=== PATIENT | male | born 1975 | race Hispanic/Latino ===

== ENCOUNTER 2018-01-18 18:30 | Emergency (ER) | payer SELFPAY ==
[2018-01-18] MEDS ORDERED: AMOXICILLIN 500 MG CAPSULE PO ONE (18:52)
== END 2018-01-18 19:01 | disposition home or self-care (01) ==
LOC: EDH 18:30
DX: J02.0 Streptococcal pharyngitis (principal); R50.81 Fever presenting with conditions classified elsewhere; Z72.0 Tobacco use

== ENCOUNTER 2020-02-27 17:55 | Emergency (ER) | payer OTHER | END 2020-02-27 18:45 | disposition home or self-care (01) | LOC: EDH 17:55 | DX: S83.8X2A Sprain of other specified parts of left knee, initial encounter (principal); I10 Essential (primary) hypertension; Z72.0 Tobacco use; W18.39XA Other fall on same level, initial encounter; Y93.02 Activity, running; Y92.488 Other paved roadways as the place of occurrence of the external cause; Y99.8 Other external cause status | CPT/HCPCS: 73562 ==

== ENCOUNTER 2021-11-11 17:05 | Emergency (ER) | payer OTHER ==
[~2021-11-11] VITALS: Ht 170.2 cm; Wt 86.2 kg
[2021-11-11] MEDS ORDERED: LIDOCAINE HCL MPF 1% 5ML VIAL ONE (18:23)
[2021-11-11 18:34] VITALS: BP 145/90
[2021-11-11] MEDS ORDERED: SULF1TAB42 PO (18:47)
[2021-11-11] MEDS ORDERED: LIDOCAINE HCL MPF 1% 5ML VIAL IM SCH (19:00)
== END 2021-11-11 18:56 | disposition home or self-care (01) ==
LOC: EDH 17:05
DX: L02.415 Cutaneous abscess of right lower limb (principal); Z98.890 Other specified postprocedural states
CPT/HCPCS: 10060; 99283; J3490

== ENCOUNTER 2021-11-28 13:47 | Emergency (ER) | payer OTHER ==
[~2021-11-28] VITALS: Ht 170.2 cm; Wt 86.2 kg
[~2021-11-28 13:47] MED LIST: SULF1TAB42 PO
[2021-11-28 13:48] VITALS: BP 168/108
[2021-11-28 14:15] LABS: HEMATOCRIT 43.8 % (42-54); MEAN CORPUSCULAR HEMOGLOBIN 30.9 pg (27.0-33.0); MEAN CORPUSCULAR HGB CONC 34.5 g/dL (32.0-36.0); MEAN CORPUSCULAR VOLUME 89.8 fL (79-99); NUCLEATED RED BLOOD CELLS 0.2 % (0.0-0.19); RED BLOOD CELL COUNT(AUTO) 4.88 MIL/uL (4.50-6.20); RED CELL DISTRIBUTION WIDTH 12.5 % (11.0-15.5); WHITE BLOOD COUNT (AUTO) 11.3 K/uL (4.8-10.8)
[2021-11-28 14:27] LABS: CREATININE 1.1 mg/dL (0.5-1.5); POTASSIUM 3.5 mmol/L (3.5-5.1)
[2021-11-28] MEDS ORDERED: KETOROLAC 30MG VIAL (30MG/ML) IV ONE (14:30)
[2021-11-28] MEDS ORDERED: CLINDAMYCIN IVPB 600MG/50ML 50 ML IV SCH (14:30)
[2021-11-28 14:32] LABS: ALBUMIN 3.3 g/dL (3.5-5.0); BILIRUBIN,TOTAL 0.7 mg/dL (0.2-1.0); TOTAL PROTEIN, SERUM 7.6 g/dL (6.0-8.3)
[2021-11-28 15:36] LABS: CRP QUANTITATIVE 75.5 mg/L (0.00-9.0)
[2021-11-28] MEDS ORDERED: CLIN-141 PO (16:19)
[2021-11-28] MEDS ORDERED: NAPR-1180 PO (16:19)
== END 2021-11-28 16:33 | disposition home or self-care (01) ==
LOC: EDH 13:47
DX: L03.116 Cellulitis of left lower limb (principal); Z79.1 Long term (current) use of non-steroidal anti-inflammatories (NSAID); Z79.899 Other long term (current) drug therapy
CPT/HCPCS: 36415; 73562; 80053; 83605; 85027; 85651; 86140; 87040 ×2; 96365; 96375; 99284; J1885; J3490

== ENCOUNTER 2022-12-01 18:57 | Inpatient (IN) | payer BC, OTHER ==
[~2022-12-01] VITALS: Ht 170.2 cm; Wt 93.0 kg
[~2022-12-01 18:57] MED LIST changes: +CLIN-141 PO; +NAPR-1180 PO
[2022-12-01] MEDS ORDERED: LIDOCAINE HCL-MPF 2% 5ML VIAL IM SCH (20:00)
[2022-12-01 20:24] LABS: BASOPHILS % (AUTO) 0.7 % (0.0-5.0); HEMATOCRIT 46.2 % (42-54); LYMPHOCYTES % (AUTO) 22.9 % (21.0-51.0); MEAN CORPUSCULAR HEMOGLOBIN 30.1 pg (27.0-33.0); MEAN CORPUSCULAR HGB CONC 34.4 g/dL (32.0-36.0); MEAN CORPUSCULAR VOLUME 87.3 fL (79-99); MONOCYTES % (AUTO) 7.9 % (3.0-13.0); NEUTROPHILS % (AUTO) 54.1 % (40.0-77.0); PLATELET COUNT (AUTO) 206 K/uL (130-400); RED BLOOD CELL COUNT(AUTO) 5.29 MIL/uL (4.50-6.20)
[2022-12-01 20:37] LABS: CARBON DIOXIDE 28 mmol/L (21-32); CHLORIDE 101 mmol/L (101-111); CREATININE 1.1 mg/dL (0.5-1.5); GLOMERULAR FILTR. RATE CALC 76 mL/min (>60); GLUCOSE,RANDOM 118 mg/dL (70-105); POTASSIUM 3.5 mmol/L (3.5-5.1); SODIUM SERUM 138 mmol/L (136-145); UREA NITROGEN, BLOOD 10 mg/dL (7-18)
[2022-12-01 20:41] LABS: ALANINE AMINOTRANSFERASE 61 U/L (12-78); ASPARTATE AMINOTRANSFERASE 20 U/L (10-37); TOTAL PROTEIN, SERUM 7.8 g/dL (6.0-8.3)
[2022-12-01 20:52] LABS: CRP QUANTITATIVE < 2.00 mg/L (0.00-9.0)
[2022-12-01] MEDS ORDERED: CEFTRIAXONE 1G VIAL IVP ONE (22:30)
[2022-12-01] MEDS ORDERED: 0.9%NACL 1000ML 1,000 ML IV ONE (22:30)
[2022-12-01] MEDS ORDERED: VANCOMYCIN 1G VIAL IVPB ONE (22:30)
[2022-12-01] MEDS ORDERED: VANCOMYCIN 1G/250ML KIT 250 ML IV ONE (23:17)
[2022-12-01] MEDS ORDERED: HYDROCODONE/ACETAMINOPHEN 5/325 MG TAB ONE (23:19)
[2022-12-01] MEDS ORDERED: ACETAMINOPHEN 325 MG TAB PO PRN ×2 (23:30)
[2022-12-01] MEDS ORDERED: NITROGLYCERIN 0.4 MG SL TAB SL PRN (23:30)
[2022-12-01] MEDS ORDERED: ONDANSETRON 4MG INJ IV PRN (23:30)
[2022-12-01] MEDS ORDERED: VANCOMYCIN PROTOCOL PER PHARMACY IV PRN (23:30)
[2022-12-01 23:50] LABS: INR 0.99 (0.85-1.15); PROTHROMBIN TIME 10.8 SEC (9.6-11.6)
[2022-12-01 23:52] LABS: PARTIAL THROMBOPLASTIN TIME 29.3 SEC (26.3-35.5)
[2022-12-02] MEDS ORDERED: 0.9%NACL 1000ML 1,000 ML IV SCH
[2022-12-02] MEDS ORDERED: ALBUTEROL INHALER 90MCG/INH IH PRN (03:30)
[2022-12-02 03:58] VITALS: BP 157/107
[2022-12-02 04:45] LABS: BASOPHILS % (AUTO) 0.6 % (0.0-5.0); EOSINOPHILS % (AUTO) 14.8 % (0.0-8.0); HEMATOCRIT 44.8 % (42-54); MEAN CORPUSCULAR HEMOGLOBIN 29.9 pg (27.0-33.0); MEAN CORPUSCULAR HGB CONC 34.4 g/dL (32.0-36.0); MONOCYTES % (AUTO) 7.7 % (3.0-13.0); NEUTROPHILS % (AUTO) 59.5 % (40.0-77.0); PLATELET COUNT (AUTO) 185 K/uL (130-400); RED BLOOD CELL COUNT(AUTO) 5.15 MIL/uL (4.50-6.20); RED CELL DISTRIBUTION WIDTH 12.9 % (11.0-15.5); WHITE BLOOD COUNT (AUTO) 8.4 K/uL (4.8-10.8)
[2022-12-02 05:05] LABS: ALBUMIN 3.6 g/dL (3.5-5.0); CREATININE 1.1 mg/dL (0.5-1.5); MAGNESIUM 1.8 mg/dL (1.80-2.40); POTASSIUM 3.6 mmol/L (3.5-5.1); TOTAL PROTEIN, SERUM 7.1 g/dL (6.0-8.3)
[2022-12-02] MEDS: FAMOTIDINE 20MG TAB PO SCH ×2 (08:01→20:19)
[2022-12-02 08:07] VITALS: BP 154/98
[2022-12-02 12:07] VITALS: BP 155/91
[2022-12-02] MEDS ORDERED: AMLODIPINE 5 MG TAB PO SCH (12:30)
[2022-12-02] MEDS ORDERED: AMLODIPINE 5 MG TAB ONE (12:52)
[2022-12-02] MEDS ORDERED: VANCOMYCIN 1G/250ML KIT 250 ML IV SCH (13:30)
[2022-12-02] MEDS ORDERED: COMPOUND IV REFRIGERATED 1 EACH IVSOLN MISC PRN (13:30)
[2022-12-02] MEDS: HYDROCODONE/ACETAMINOPHEN 5/325 MG TAB PO PRN (13:31)
[2022-12-02 16:10] VITALS: BP 155/86
[2022-12-02] MEDS: CEFTRIAXONE 1G VIAL IV SCH (20:19)
[2022-12-02] MEDS: VANCOMYCIN 1.25 GM/250 ML BAG 250 ML IV SCH (20:22)
[2022-12-02 20:25] VITALS: BP 158/100
[2022-12-02 23:56] VITALS: BP 159/88
[2022-12-03 03:41] VITALS: BP 148/75
[2022-12-03 04:39] LABS: BASOPHILS % (AUTO) 0.5 % (0.0-5.0); EOSINOPHILS % (AUTO) 16.8 % (0.0-8.0); HEMATOCRIT 46.3 % (42-54); LYMPHOCYTES % (AUTO) 23.3 % (21.0-51.0); MEAN CORPUSCULAR HEMOGLOBIN 30.3 pg (27.0-33.0); MEAN CORPUSCULAR HGB CONC 34.3 g/dL (32.0-36.0); MEAN CORPUSCULAR VOLUME 88.2 fL (79-99); MONOCYTES % (AUTO) 9.7 % (3.0-13.0); NEUTROPHILS % (AUTO) 49.3 % (40.0-77.0); PLATELET COUNT (AUTO) 183 K/uL (130-400); RED BLOOD CELL COUNT(AUTO) 5.25 MIL/uL (4.50-6.20); WHITE BLOOD COUNT (AUTO) 9.8 K/uL (4.8-10.8)
[2022-12-03 04:55] LABS: ALBUMIN 3.4 g/dL (3.5-5.0); CREATININE 1.1 mg/dL (0.5-1.5); CRP QUANTITATIVE 41.3 mg/L (0.00-9.0); POTASSIUM 3.8 mmol/L (3.5-5.1)
[2022-12-03] MEDS: FAMOTIDINE 20MG TAB PO SCH ×2 (08:19→20:19)
[2022-12-03 08:30] VITALS: BP 165/100
[2022-12-03] MEDS: AMLODIPINE 5 MG TAB PO SCH (09:00)
[2022-12-03] MEDS: VANCOMYCIN 1.25 GM/250 ML BAG 250 ML IV SCH ×2 (09:55→22:09)
[2022-12-03] MEDS ORDERED: HYDRALAZINE 20MG/ML VIAL IV SCH (10:00)
[2022-12-03] MEDS ORDERED: HYDRALAZINE 20MG/ML VIAL IM SCH (10:00)
[2022-12-03 12:05] VITALS: BP 148/100
[2022-12-03 17:35] VITALS: BP 135/64
[2022-12-03 20:00] VITALS: BP 156/94
[2022-12-03] MEDS: CEFTRIAXONE 1G VIAL IV SCH (20:19)
[2022-12-04] VITALS (27 sets, daily range): BP systolic 136–166; BP diastolic 64–107
[2022-12-04] MEDS ORDERED: ROPIVACAINE 0.5% 5MG/ML 30ML IJ ONE ×2 (06:45→08:55)
[2022-12-04] MEDS ORDERED: ROCURONIUM 10MG/1ML SYR 10 MG/ML ML ONE (07:07)
[2022-12-04] MEDS ORDERED: PROPOFOL 10 MG/ML 20ML VIAL IV ONE (07:07)
[2022-12-04] MEDS ORDERED: MIDAZOLAM HCL 1 MG/ML 2ML VIAL ONE (07:07)
[2022-12-04] MEDS ORDERED: FENTANYL CITRATE PF 50 MCG/1 ML 2ML VIAL ONE ×3 (07:07→08:36)
[2022-12-04] MEDS ORDERED: ONDANSETRON 4MG INJ ONE (07:27)
[2022-12-04 07:31] LABS: EOSINOPHILS % (AUTO) 18.8 % (0.0-8.0); HEMATOCRIT 47.3 % (42-54); LYMPHOCYTES % (AUTO) 24.2 % (21.0-51.0); MEAN CORPUSCULAR HEMOGLOBIN 29.7 pg (27.0-33.0); MEAN CORPUSCULAR VOLUME 87.1 fL (79-99); MONOCYTES % (AUTO) 8.3 % (3.0-13.0); NEUTROPHILS % (AUTO) 47.3 % (40.0-77.0); PLATELET COUNT (AUTO) 203 K/uL (130-400); RED BLOOD CELL COUNT(AUTO) 5.43 MIL/uL (4.50-6.20); RED CELL DISTRIBUTION WIDTH 13.2 % (11.0-15.5); WHITE BLOOD COUNT (AUTO) 9.2 K/uL (4.8-10.8)
[2022-12-04] MEDS: FAMOTIDINE 20MG TAB PO SCH ×2 (07:39→19:26)
[2022-12-04] MEDS: AMLODIPINE 5 MG TAB PO SCH (07:39)
[2022-12-04] MEDS: VANCOMYCIN 1.25 GM/250 ML BAG 250 ML IV SCH ×2 (07:39→21:11)
[2022-12-04 07:58] LABS: ALBUMIN 3.6 g/dL (3.5-5.0); CREATININE 1.1 mg/dL (0.5-1.5); MAGNESIUM 2.2 mg/dL (1.80-2.40); POTASSIUM 3.3 mmol/L (3.5-5.1); TOTAL PROTEIN, SERUM 7.3 g/dL (6.0-8.3)
[2022-12-04] MEDS ORDERED: MEPERIDINE-PF 25 MG/ML SYG ONE (07:59)
[2022-12-04] MEDS ORDERED: NEOSTIGMINE 5MG/5ML SYR IV ONE (08:36)
[2022-12-04] MEDS ORDERED: GLYCOPYRROLATE 1 MG/5 ML SYRINGE ONE (08:36)
[2022-12-04] MEDS ORDERED: KETOROLAC 30MG VIAL (30MG/ML) ONE (09:23)
[2022-12-04] MEDS ORDERED: LABETALOL 20MG SYG IV ONE (09:31)
[2022-12-04] MEDS: CEFTRIAXONE 1G VIAL IV SCH (19:26)
[2022-12-04] MEDS: HYDROCODONE/ACETAMINOPHEN 5/325 MG TAB PO PRN (20:07)
[2022-12-05] VITALS (8 sets, daily range): BP systolic 154–189; BP diastolic 84–104
[2022-12-05] MEDS: HYDROCODONE/ACETAMINOPHEN 5/325 MG TAB PO PRN ×4 (00:12→19:43)
[2022-12-05 06:50] LABS: BASOPHILS % (AUTO) 0.7 % (0.0-5.0); EOSINOPHILS % (AUTO) 17.2 % (0.0-8.0); HEMATOCRIT 44.5 % (42-54); LYMPHOCYTES % (AUTO) 25.2 % (21.0-51.0); MEAN CORPUSCULAR HEMOGLOBIN 30.1 pg (27.0-33.0); MEAN CORPUSCULAR HGB CONC 33.7 g/dL (32.0-36.0); MEAN CORPUSCULAR VOLUME 89.2 fL (79-99); MONOCYTES % (AUTO) 6.4 % (3.0-13.0); NEUTROPHILS % (AUTO) 50.1 % (40.0-77.0); PLATELET COUNT (AUTO) 192 K/uL (130-400); RED BLOOD CELL COUNT(AUTO) 4.99 MIL/uL (4.50-6.20); RED CELL DISTRIBUTION WIDTH 13.3 % (11.0-15.5); WHITE BLOOD COUNT (AUTO) 8.9 K/uL (4.8-10.8)
[2022-12-05 07:01] LABS: POTASSIUM 3.9 mmol/L (3.5-5.1)
[2022-12-05] MEDS: AMLODIPINE 5 MG TAB PO SCH (08:08)
[2022-12-05] MEDS: VANCOMYCIN 1.25 GM/250 ML BAG 250 ML IV SCH ×2 (08:08→21:29)
[2022-12-05] MEDS: FAMOTIDINE 20MG TAB PO SCH ×2 (08:08→19:34)
[2022-12-05] MEDS ORDERED: AMLODIPINE 5 MG TAB ONE (12:17)
[2022-12-05] MEDS ORDERED: AMLODIPINE 5 MG TAB PO ONE (13:00)
[2022-12-05] MEDS: CEFTRIAXONE 1G VIAL IV SCH (19:34)
[2022-12-05] MEDS ORDERED: LABETALOL 20MG SYG IV ONE (21:30)
[2022-12-06] VITALS: BP 147/92
[2022-12-06 04:00] VITALS: BP 160/102
[2022-12-06] MEDS: HYDROCODONE/ACETAMINOPHEN 5/325 MG TAB PO PRN (04:40)
[2022-12-06 07:06] LABS: BASOPHILS % (AUTO) 0.7 % (0.0-5.0); EOSINOPHILS % (AUTO) 18.7 % (0.0-8.0); HEMATOCRIT 47.3 % (42-54); MEAN CORPUSCULAR HEMOGLOBIN 29.6 pg (27.0-33.0); MEAN CORPUSCULAR HGB CONC 33.6 g/dL (32.0-36.0); MEAN CORPUSCULAR VOLUME 88.1 fL (79-99); MONOCYTES % (AUTO) 6.2 % (3.0-13.0); NEUTROPHILS % (AUTO) 53.2 % (40.0-77.0); PLATELET COUNT (AUTO) 229 K/uL (130-400); RED BLOOD CELL COUNT(AUTO) 5.37 MIL/uL (4.50-6.20); RED CELL DISTRIBUTION WIDTH 13.2 % (11.0-15.5); WHITE BLOOD COUNT (AUTO) 8.3 K/uL (4.8-10.8)
[2022-12-06 07:17] LABS: POTASSIUM 3.9 mmol/L (3.5-5.1)
[2022-12-06 08:00] VITALS: BP 164/99
[2022-12-06] MEDS: AMLODIPINE 5 MG TAB PO SCH (08:23)
[2022-12-06] MEDS: LISINOPRIL 5 MG TABLET PO SCH (08:23)
[2022-12-06] MEDS: FAMOTIDINE 20MG TAB PO SCH ×2 (08:23→19:39)
[2022-12-06] MEDS: VANCOMYCIN 1.25 GM/250 ML BAG 250 ML IV SCH (08:24)
[2022-12-06 12:00] VITALS: BP 160/95
[2022-12-06] MEDS ORDERED: HYDRALAZINE 25MG TABLET PO PRN (13:00)
[2022-12-06] MEDS ORDERED: LISINOPRIL 5 MG TABLET PO SCH (13:30)
[2022-12-06 16:00] VITALS: BP 151/88
[2022-12-06] MEDS: CEFAZOLIN SODIUM 2 GM VIAL IVP SCH (19:10)
[2022-12-06 19:35] LABS: INR 0.96 (0.85-1.15); PROTHROMBIN TIME 10.5 SEC (9.6-11.6)
[2022-12-06 19:36] LABS: PARTIAL THROMBOPLASTIN TIME 27.8 SEC (26.3-35.5)
[2022-12-06 20:29] VITALS: BP 153/91
[2022-12-07] VITALS (7 sets, daily range): BP systolic 126–155; BP diastolic 78–90
[2022-12-07] MEDS: CEFAZOLIN SODIUM 2 GM VIAL IVP SCH ×3 (02:31→18:54)
[2022-12-07 05:30] LABS: HEMATOCRIT 45.4 % (42-54); MEAN CORPUSCULAR HGB CONC 33.9 g/dL (32.0-36.0); MEAN CORPUSCULAR VOLUME 88.5 fL (79-99); RED BLOOD CELL COUNT(AUTO) 5.13 MIL/uL (4.50-6.20)
[2022-12-07 05:45] LABS: CREATININE 1.1 mg/dL (0.5-1.5); POTASSIUM 3.8 mmol/L (3.5-5.1)
[2022-12-07] MEDS: LISINOPRIL 5 MG TABLET PO SCH ×2 (07:33→08:35)
[2022-12-07] MEDS: FAMOTIDINE 20MG TAB PO SCH ×2 (08:35→19:29)
[2022-12-07] MEDS: AMLODIPINE 5 MG TAB PO SCH (08:35)
[2022-12-08] MEDS: CEFAZOLIN SODIUM 2 GM VIAL IVP SCH ×3 (01:45→19:30)
[2022-12-08 04:39] LABS: HEMATOCRIT 44.7 % (42-54); MEAN CORPUSCULAR HEMOGLOBIN 30.2 pg (27.0-33.0); MEAN CORPUSCULAR HGB CONC 34.2 g/dL (32.0-36.0); MEAN CORPUSCULAR VOLUME 88.3 fL (79-99); RED BLOOD CELL COUNT(AUTO) 5.06 MIL/uL (4.50-6.20); RED CELL DISTRIBUTION WIDTH 13.2 % (11.0-15.5); WHITE BLOOD COUNT (AUTO) 11.8 K/uL (4.8-10.8)
[2022-12-08 04:47] VITALS: BP 118/74
[2022-12-08 04:54] LABS: CREATININE 1.2 mg/dL (0.5-1.5); POTASSIUM 3.3 mmol/L (3.5-5.1)
[2022-12-08 07:54] VITALS: BP 135/92
[2022-12-08] MEDS: LISINOPRIL 5 MG TABLET PO SCH ×2 (09:00→09:46)
[2022-12-08] MEDS: FAMOTIDINE 20MG TAB PO SCH ×2 (09:46→20:47)
[2022-12-08] MEDS: AMLODIPINE 5 MG TAB PO SCH (09:46)
[2022-12-08 11:32] VITALS: BP 137/78
[2022-12-08 16:55] VITALS: BP 125/87
[2022-12-08] MEDS ORDERED: POTASSIUM CHLORIDE 20MEQ/100ML 100 ML IV PRN (17:00)
[2022-12-08] MEDS ORDERED: POTASSIUM CHLORIDE 10% ELIXIR 20 MEQ/15 ML UDCUP PO PRN (17:00)
[2022-12-08] MEDS ORDERED: LIDOCAINE HCL-MPF 1% 2ML VIAL IV PRN (17:00)
[2022-12-08] MEDS: KCL 20 MEQ ERTAB PO PRN ×2 (17:28→19:31)
[2022-12-08 20:02] VITALS: BP 152/95
[2022-12-08 23:37] VITALS: BP 131/82
[2022-12-09] MEDS: CEFAZOLIN SODIUM 2 GM VIAL IVP SCH ×3 (02:25→17:00)
[2022-12-09 04:08] VITALS: BP 115/80
[2022-12-09 08:00] VITALS: BP 140/85
[2022-12-09] MEDS: LISINOPRIL 5 MG TABLET PO SCH ×2 (09:00→11:20)
[2022-12-09 09:16] LABS: MAGNESIUM 1.8 mg/dL (1.80-2.40); POTASSIUM 3.7 mmol/L (3.5-5.1)
[2022-12-09] MEDS: FAMOTIDINE 20MG TAB PO SCH ×2 (11:20→19:57)
[2022-12-09] MEDS: AMLODIPINE 5 MG TAB PO SCH (11:20)
[2022-12-09 11:48] VITALS: BP 185/92
[2022-12-09 12:14] LABS: HEMATOCRIT 45.3 % (42-54); MEAN CORPUSCULAR HEMOGLOBIN 30.1 pg (27.0-33.0); MEAN CORPUSCULAR HGB CONC 33.3 g/dL (32.0-36.0); MEAN CORPUSCULAR VOLUME 90.2 fL (79-99); RED BLOOD CELL COUNT(AUTO) 5.02 MIL/uL (4.50-6.20); RED CELL DISTRIBUTION WIDTH 13.2 % (11.0-15.5); WHITE BLOOD COUNT (AUTO) 8.7 K/uL (4.8-10.8)
[2022-12-09 19:47] VITALS: BP 146/73
[2022-12-09] MEDS: KCL 20 MEQ ERTAB PO PRN ×2 (19:58→22:45)
[2022-12-09 23:26] VITALS: BP 132/78
[2022-12-10] MEDS ORDERED: MORPHINE 2 MG SYG IVP PRN
[2022-12-10] MEDS ORDERED: HYDROCODONE/ACETAMINOPHEN 5/325 MG TAB PO PRN
[2022-12-10 03:04] VITALS: BP 110/76
[2022-12-10] MEDS: CEFAZOLIN SODIUM 2 GM VIAL IVP SCH ×2 (03:16→11:10)
[2022-12-10 07:47] VITALS: BP 132/79
[2022-12-10] MEDS: AMLODIPINE 5 MG TAB PO SCH (08:26)
[2022-12-10] MEDS: FAMOTIDINE 20MG TAB PO SCH (08:26)
[2022-12-10] MEDS: LISINOPRIL 5 MG TABLET PO SCH (08:27)
[2022-12-10 11:02] VITALS: BP 133/84
== END 2022-12-10 17:00 | disposition home or self-care (01) | DRG 907 ==
LOC: EDH 18:57 → EDHIP 22:59 → 4CH 12-02 01:25
PROVIDERS: ADMIT Hospitalist; ATTEND Hospitalist
PROC: 0SPD0JZ Removal of Synthetic Substitute from Left Knee Joint, Open Approach (ICD-10-PCS; principal; 2022-12-06)
DX: T85.79XA Infection and inflammatory reaction due to other internal prosthetic devices, implants and grafts, initial encounter (principal); U07.1 COVID-19; L03.116 Cellulitis of left lower limb; L02.416 Cutaneous abscess of left lower limb; I10 Essential (primary) hypertension; E11.9 Type 2 diabetes mellitus without complications; Z96.652 Presence of left artificial knee joint; Z68.32 Body mass index [BMI] 32.0-32.9, adult; E66.9 Obesity, unspecified; B95.61 Methicillin susceptible Staphylococcus aureus infection as the cause of diseases classified elsewhere; Y83.8 Other surgical procedures as the cause of abnormal reaction of the patient, or of later complication, without mention of misadventure at the time of the procedure; Y92.89 Other specified places as the place of occurrence of the external cause
CPT/HCPCS: 36415; 71045; 73564; 80048; 80053; 80202; 83605; 83735; 84145; 85025; 85027; 85610; 85730; 86140; 87040; 87070; 87076; 87077; 87186; 87635; 93005; 97039; C1894; G0378; J0696; J1885; J2175; J2250; J2405; J2704; J2710; J2795; J3010; J3370; J3490; J7030

== ENCOUNTER → 2022-12-17 | Emergency (ER) | payer BC | LOC: EDH 11:59 | DX: R68.89 Other general symptoms and signs (principal); Z53.21 Procedure and treatment not carried out due to patient leaving prior to being seen by health care provider ==

== ENCOUNTER 2023-08-20 14:35 | Inpatient (IN) | payer BC, OTHER ==
[~2023-08-20] VITALS: Ht 170.2 cm; Wt 95.9 kg
[2023-08-20 15:20] LABS: APPEARANCE,URINE CLEAR (CLEAR); BILIRUBIN,URINE NEGATIVE (NEGATIVE); COLOR,URINE YELLOW (YELLOW); GLUCOSE, URINE (UA) >=1000 mg/dL (NEGATIVE); KETONES,URINE NEGATIVE (NEGATIVE); LEUKOCYTE ESTERASE ,URINE NEGATIVE Leu/uL (NEGATIVE); NITRATE,URINE NEGATIVE (NEGATIVE); OCCULT BLOOD,URINE NEGATIVE (NEGATIVE); PH,URINE 6.5 (5.0-8.0); PROTEIN,URINE 50 mg/dL (NEGATIVE); UROBILINOGEN,URINE 0.2 mg/dL (0.2-1.0)
[2023-08-20 15:21] LABS: ADD UA MICROSCOPIC YES; MUCUS,URINE RARE LPF (None Seen); RBC,URINE 0-1 /HPF (0-1); SQUAMOUS EPITHELIAL CELL,UR RARE /HPF (0-2); WBC,URINE 0-1 /HPF (0-1)
[2023-08-20 15:29] LABS: INFLUENZA TYPE A Negative For Type A (NEGATIVE); INFLUENZA TYPE B Negative For Type B (NEGATIVE)
[2023-08-20 15:51] LABS: BASOPHILS # (AUTO) 0.07 K/uL (0.00-0.20); BASOPHILS % (AUTO) 0.6 % (0.0-5.0); EOSINOPHILS # (AUTO) 0.84 K/uL (0.00-0.70); HEMATOCRIT 47.3 % (42-54); IMMATURE GRANULOCYTE ABSOLUTE 0.04 K/uL (0-1); LYMPHOCYTES # (AUTO) 1.6 K/uL (1.0-4.8); LYMPHOCYTES % (AUTO) 13.1 % (21.0-51.0); MEAN CORPUSCULAR HEMOGLOBIN 31.7 pg (27.0-33.0); MEAN CORPUSCULAR HGB CONC 35.5 g/dL (32.0-36.0); MEAN CORPUSCULAR VOLUME 89.2 fL (79-99); MONOCYTES # (AUTO) 0.6 K/uL (0.1-1.0); MONOCYTES % (AUTO) 5.2 % (3.0-13.0); NEUTROPHILS # (AUTO) 8.8 K/uL (1.8-7.7); NEUTROPHILS % (AUTO) 73.8 % (40.0-77.0); PLATELET COUNT (AUTO) 210 K/uL (130-400); RED CELL DISTRIBUTION WIDTH 12.5 % (11.0-15.5); WHITE BLOOD COUNT (AUTO) 11.9 K/uL (4.8-10.8)
[2023-08-20 16:06] LABS: CREATININE 1.1 mg/dL (0.5-1.5); POTASSIUM 3.4 mmol/L (3.5-5.1)
[2023-08-20 16:11] LABS: ALBUMIN 3.6 g/dL (3.5-5.0); BILIRUBIN,TOTAL 0.6 mg/dL (0.2-1.0); TOTAL PROTEIN, SERUM 7.8 g/dL (6.0-8.3)
[2023-08-20 16:19] LABS: AMPHET/METH SCREEN,URINE NEGATIVE (NEGATIVE); BARBITURATE SCREEN, URINE NEGATIVE (NEGATIVE); BENZODIAZEPINES SCREEN,URINE NEGATIVE (NEGATIVE); CANNABINOID SCREEN,URINE NEGATIVE (NEGATIVE); COCAINE SCREEN,URINE POSITIVE (NEGATIVE); OPIATE SCREEN,URINE NEGATIVE (NEGATIVE); PHENCYCLIDINE SCREEN,URINE NEGATIVE (NEGATIVE)
[2023-08-20] MEDS ORDERED: LABETALOL 20MG VIAL IV ONE (16:30)
[2023-08-20 17:39] VITALS: PULSE 78
[2023-08-20] MEDS: NITROGLYCERIN 1GM OINT 1 INCH/1GM TD SCH (20:55)
[2023-08-20] MEDS: FAMOTIDINE 20MG TAB PO SCH (20:55)
[2023-08-20] MEDS ORDERED: HYDRALAZINE 20MG/ML VIAL IV PRN (21:00)
[2023-08-20] MEDS ORDERED: GLUCAGON 1MG KIT 1 MG ML IM PRN (21:00)
[2023-08-20] MEDS ORDERED: POTASSIUM CHLORIDE 10% ELIXIR 20 MEQ/15 ML UDCUP PO PRN (21:00)
[2023-08-20] MEDS ORDERED: MAGNESIUM 2GM PREMIX 50ML 50 ML IV PRN (21:00)
[2023-08-20] MEDS ORDERED: ONDANSETRON 4MG INJ IV PRN (21:00)
[2023-08-20] MEDS ORDERED: DEXTROSE 50%-WATER 50 ML DISP.SYRIN IV PRN (21:00)
[2023-08-20] MEDS ORDERED: POTASSIUM CHLORIDE 20MEQ/100ML 100 ML IV PRN (21:00)
[2023-08-20] MEDS ORDERED: ACETAMINOPHEN 325 MG TAB PO PRN (21:00)
[2023-08-20] MEDS: INSULIN HUMULIN R 100 UNIT/ML 3ML SQ SCH (21:06)
[2023-08-20 22:59] LABS: SARS-CoV-2, RNA, NAAT NEGATIVE SARS CoV-2 (NEGATIVE)
[2023-08-20 23:25] VITALS: O2SAT 96
[2023-08-20] MEDS: ACETAMINOPHEN 325 MG TAB PO PRN (23:41)
[2023-08-20 23:48] VITALS: BP 148/84; PULSE 71; RESP 18
[2023-08-21] VITALS (7 sets, daily range): BP systolic 128–152; BP diastolic 71–94; PULSE 65–87; RESP 16–18; O2SAT 95–98
[2023-08-21] MEDS: KCL 20 MEQ ERTAB PO PRN ×3 (00:09→04:57)
[2023-08-21 02:42] LABS: BASOPHILS # (AUTO) 0.08 K/uL (0.00-0.20); BASOPHILS % (AUTO) 0.7 % (0.0-5.0); EOSINOPHILS # (AUTO) 1.29 K/uL (0.00-0.70); EOSINOPHILS % (AUTO) 11.4 % (0.0-8.0); HEMATOCRIT 44.2 % (42-54); IMMATURE GRANULOCYTE ABSOLUTE 0.05 K/uL (0-1); LYMPHOCYTES # (AUTO) 2.7 K/uL (1.0-4.8); LYMPHOCYTES % (AUTO) 23.4 % (21.0-51.0); MEAN CORPUSCULAR HEMOGLOBIN 31.4 pg (27.0-33.0); MEAN CORPUSCULAR HGB CONC 35.1 g/dL (32.0-36.0); MEAN CORPUSCULAR VOLUME 89.5 fL (79-99); MONOCYTES # (AUTO) 0.7 K/uL (0.1-1.0); MONOCYTES % (AUTO) 6.4 % (3.0-13.0); NEUTROPHILS # (AUTO) 6.5 K/uL (1.8-7.7); NEUTROPHILS % (AUTO) 57.7 % (40.0-77.0); PLATELET COUNT (AUTO) 201 K/uL (130-400); RED BLOOD CELL COUNT(AUTO) 4.94 MIL/uL (4.50-6.20); RED CELL DISTRIBUTION WIDTH 12.7 % (11.0-15.5); WHITE BLOOD COUNT (AUTO) 11.3 K/uL (4.8-10.8)
[2023-08-21 02:58] LABS: HEMOGLOBIN A1C 7.4 % (4.0-6.0)
[2023-08-21 03:06] LABS: ALBUMIN 3.4 g/dL (3.5-5.0); BILIRUBIN,TOTAL 0.7 mg/dL (0.2-1.0); POTASSIUM 3.3 mmol/L (3.5-5.1); THYROID STIMULATING HORMONE 1.57 uIU/mL (0.36-3.74); TOTAL PROTEIN, SERUM 7.2 g/dL (6.0-8.3)
[2023-08-21] MEDS: NITROGLYCERIN 1GM OINT 1 INCH/1GM TD SCH ×3 (04:54→21:00)
[2023-08-21] MEDS: INSULIN HUMULIN R 100 UNIT/ML 3ML SQ SCH ×4 (06:08→21:01)
[2023-08-21] MEDS ORDERED: LABETALOL 20MG VIAL IV PRN (08:00)
[2023-08-21] MEDS: FAMOTIDINE 20MG TAB PO SCH ×2 (11:06→21:00)
[2023-08-21] MEDS: ASPIRIN 81 MG EC TAB PO SCH (11:07)
[2023-08-21] MEDS: AMLODIPINE 5 MG TAB PO SCH (11:07)
[2023-08-21] MEDS: ACETAMINOPHEN 325 MG TAB PO PRN (23:38)
[2023-08-22 00:10] VITALS: BP 144/83; PULSE 72; RESP 17
[2023-08-22 04:46] VITALS: BP 143/76; PULSE 73; RESP 16
[2023-08-22] MEDS: NITROGLYCERIN 1GM OINT 1 INCH/1GM TD SCH (04:47)
[2023-08-22] MEDS: ACETAMINOPHEN 325 MG TAB PO PRN (04:48)
[2023-08-22] MEDS: INSULIN HUMULIN R 100 UNIT/ML 3ML SQ SCH ×2 (06:27→11:30)
[2023-08-22 08:00] VITALS: BP 147/89; PULSE 68; RESP 16; O2SAT 97
[2023-08-22] MEDS: FAMOTIDINE 20MG TAB PO SCH (08:15)
[2023-08-22] MEDS: ASPIRIN 81 MG EC TAB PO SCH (08:15)
[2023-08-22] MEDS: AMLODIPINE 5 MG TAB PO SCH (08:15)
[2023-08-22 09:42] LABS: CREATININE 1.1 mg/dL (0.5-1.5); POTASSIUM 3.8 mmol/L (3.5-5.1)
[2023-08-22 09:46] LABS: ALBUMIN 3.4 g/dL (3.5-5.0); MAGNESIUM 1.9 mg/dL (1.80-2.40); TOTAL PROTEIN, SERUM 7.4 g/dL (6.0-8.3)
[2023-08-22 11:00] VITALS: BP 150/93; PULSE 80; RESP 16
[2023-08-22] MEDS ORDERED: AEC81 PO (12:06)
[2023-08-22] MEDS ORDERED: ROSU10TA22 PO (12:06)
[2023-08-22] MEDS ORDERED: AMLO5TAB4 PO (12:20)
== END 2023-08-22 13:50 | disposition home or self-care (01) | DRG 918 ==
LOC: EDH 14:35 → EDHIP 14:36 → OBSVTOIN 14:36 → 3CH 22:37
PROVIDERS: ADMIT Hospitalist; ATTEND Hospitalist
DX: T40.5X1A Poisoning by cocaine, accidental (unintentional), initial encounter (principal); I20.0 Unstable angina; F43.21 Adjustment disorder with depressed mood; E78.00 Pure hypercholesterolemia, unspecified; I10 Essential (primary) hypertension; E87.6 Hypokalemia; E11.9 Type 2 diabetes mellitus without complications; F14.10 Cocaine abuse, uncomplicated; Y92.89 Other specified places as the place of occurrence of the external cause; K76.0 Fatty (change of) liver, not elsewhere classified; Z59.7 Insufficient social insurance and welfare support; Z79.899 Other long term (current) drug therapy; F32.A Depression, unspecified
CPT/HCPCS: 36415; 71045; 80053; 80061; 80305; 81001; 82306; 82948; 83036; 83735; 84132; 84207; 84443; 84484; 85025; 87635; 87804; 93005; G0378; J0360; J1815; J3490